=== PATIENT | female | born 1965 | race Caucasian/White ===

== ENCOUNTER 2017-03-14 17:26 | Inpatient (IN) | payer OTHER ==
[~2017-03-14] VITALS: Ht 154.9 cm; Wt 65.8 kg
--- NOTE | ~2017-03-14 | CO ---
Unit #: [id number] #: [id number] Patient: CARMEN RODRIGUEZ [id number] [address] [place], [place] [address] [id number] I MR#: [id number] NAME: CARMEN RODRIGUEZ ROOM: 231 Age: 52 Sex: F Admission Date: 03/14/2017 : 1965 Attending Physician: Rocío Coffey M.D. Primary Care Physician: Lse Alex M.D. Consultation Date: 03/16/2017 CONSULTATION REPORT REASON FOR CONSULTATION Bilateral hydronephrosis. HISTORY OF PRESENT ILLNESS The patient is a 52-year-old female with a history of cervical cancer, status post chemotherapy and radiation, and nephrolithiasis, who presented with approximately a four to five day history of nausea and vomiting as well as dysuria. She denies flank pain, she denies fevers. CT of the abdomen and pelvis revealed bilateral hydronephrosis, right greater than left, with a somewhat distended bladder. Her medical history is significant for nephrolithiasis. She underwent ureteroscopy and she was found to have a large stone burden in 2014. The patient was noncompliant with followup after this. She re-presented in early 2015. She underwent cystoscopy, right stent placement and right retrograde pyelogram and she was found to have a structure at the ureteral inlet. She was recommended to undergo right ureteral reimplant. We had multiple issues with compliance with followup including extensive number of unreturned phone calls from the patient. She also saw my partner, Dr. Brennen Herrera, who made a similar recommendation. I do not have any records of this being done but the patient states that she did have the surgery ultimately done but she does not know where the surgery was performed or who did the surgery. I do not have these records available to me. PAST MEDICAL HISTORY Includes: 1. Cervical cancer. 2. Hypothyroidism. PAST SURGICAL HISTORY 1. Cystoscopy, right ureteroscopy. 2. Cystoscopy, right retrograde and right stent placement. 3. Cholecystectomy. 4. ERCP with sphincterotomy and biliary stent. SOCIAL HISTORY The patient lives with her . Negative for smoking, tobacco or alcohol. FAMILY HISTORY Unremarkable. ALLERGIES Unremarkable. Unit #: [id number] #: [id number] Patient: CARMEN RODRIGUEZ MEDICATIONS Medications at home include levothyroxine. REVIEW OF SYSTEMS Twelve point review of systems was performed. It was positive for nausea. Negative for fever, negative for chills, negative for flank pain. Positive for nasal congestion. PHYSICAL EXAMINATION VITAL SIGNS: Temperature 98.3, blood pressure 100/56, pulse 88, respirations 20. HEENT: Normocephalic, atraumatic. Extraocular movements are intact. NECK: Supple. There is no lymphadenopathy. CARDIAC: The patient had regular rate and rhythm. Her radial pulses are 2+ bilaterally. RESPIRATIONS: She has normal symmetric chest rise bilaterally. Her chest is normal to palpation. ABDOMEN: Soft, nontender, nondistended. There is no rebound, no guarding, no CVA tenderness. She has a well-healed lower midline incision. EXTREMITIES: She has no clubbing, cyanosis, or edema. There is a negative Homans sign. SCDs are in place. EXAM: She has a Golden catheter in place. It is draining cloudy urine. DIAGNOSTIC STUDIES LABORATORY: Significant for a creatinine of 0.9, white blood cell count of 8000. Urinalysis is consistent with pyuria. Urine culture is growing Gram-negative rods. IMAGING: CT scan of the abdomen and pelvis was personally reviewed. She has bilateral hydronephrosis, right greater than left, with thinning of her right kidney which was present a year ago but appears to be slightly worse. ASSESSMENT AND PLAN Bilateral hydronephrosis, right greater than left: It appears that the patient has had some sort of a right reimplant but I do not have the records available to me. She may have hydronephrosis from reflux as well. I agree with the plan for Golden catheter, decompression and IV antibiotics. We will check an IVP today to evaluate for obstruction. She may ultimately need stents, but if she has had her right sided reimplanted, it may be difficult to place a stent in and, ultimately, may need nephrostomy tube. We appreciate the opportunity to participate in her care. Dictated by.Ngozi Villarreal M.D. STEVIE/steve TD: 03/16/2017 08:00 JOB #: [id number] Unit #: [id number] #: [id number] Patient: CARMEN RODRIGUZE CONSULTATION REPORT Page 1 of 1 X Davon Villarreal MD CONSULTATION REPORT
--- NOTE | ~2017-03-14 | CR161 ---
[facility] A Service of [facility] & [facility] RADIOLOGY TEXT RESULTS PATIENT: CARMEN RODRIGUEZ LOCATION: C2A 231-01 : [birth year] UNIT #: [id number] AGE: [address]: Rocío Coffey MD SEX: F ORDER DR: [id number] [facility] [address] [facility]. [place], [place] [address] [id number] I MR#: [id number] Acc #: [id number] NAME: CARMEN RODRIGUEZ. : 1965 SEX: F STUDY DATE/TIME: 03/16/2017 8:15 UNIT: C2 ROOM: 231 STUDY DESCRIPTION: CR IVP W Nephrotomogram Attending Physician: Rocío Coffey M.D. Ordering Physician: Davon Villarreal M.D. Primary Care Physician: Les Alex M.D. MEDICAL IMAGING REPORT This report is preliminary unless electronic signature is present EXAM IVP 03/16/2017 INDICATION Urinary tract infections. Hydronephrosis bilaterally seen on prior CT, right greater than left. Prior history of cervical cancer. FINDINGS Opal Miner image shows 2 biliary stents in the right upper quadrant. Numerous surgical clips are present in the right side of the abdomen extending into the pelvis. Cholecystectomy clips are present. Stool is noted in the colon which degrades image quality. The patient was administered 100 mL of Isovue-300 contrast and multiple images were obtained including nephrotomograms. No fluoro was employed. The left kidney has a normal appearance. No definite left hydronephrosis is seen. The left ureter appears normal in caliber to the extent that it is visible. The technologist inadvertently did not clamp the patient's Golden and therefore distended bladder images are not available. On the right side, there is at least a moderate degree of hydronephrosis noted with blunting and distension of the calyces. The renal pelvis does eventually fill with contrast. However, the right ureter never fills to any significant degree and is therefore not evaluated. This could indicate a right side UPJ stenosis. Function of the right kidney does appear somewhat delayed relative to the left. IMPRESSION 1. The left kidney as well as the left renal collecting system and left ureter appear normal. 2. At least a moderate degree of hydronephrosis in the right kidney with slightly delayed function relative to the left kidney. The right ureter never fills with contrast and is therefore not evaluated. This may be secondary to a right UPJ stenosis. 3. The patient's Golden catheter was inadvertently not clamped during the [facility] A Service of [facility] RADIOLOGY TEXT RESULTS PATIENT: CARMEN RODRIGUEZ LOCATION: [facility] 231-01 : 67 UNIT #: [id number] AGE: [address]: Rocío Coffey MD SEX: F ORDER DR: procedure and therefore, distended urinary bladder images could not be obtained. Dictated by... Elkin Ray Jr., M.D. THIS IS AN ELECTRONICALLY VERIFIED REPORT Elkin Ray Jr., M.D. at 03/16/2017 5:20 PM STEPH/cathy TD: 03/16/2017 14:19 JOB #: [id number] MEDICAL IMAGING REPORT Page 1 of 1 COPY
--- NOTE | ~2017-03-14 | CO ---
Unit #: [id number] #: [id number] Patient: CARMEN RODRIGUEZ [id number] [address] [address] [id number] I MR#: [id number] NAME: CARMEN RODRIGUEZ. ROOM: 231 Age: 52 Sex: F Admission Date: 03/14/2017 : 1965 Attending Physician: Rocío Coffey M.D. Primary Care Physician: Les Alex M.D. Consultation Date: 03/17/2017 CONSULTATION REPORT REASON FOR CONSULTATION Abnormal thyroid function test. HISTORY OF PRESENT ILLNESS A 52-year-old female, who is admitted with nausea, vomiting, abdominal pain, dysuria, and hematuria. She was admitted and found to have the hydronephrosis and urinary tract infection. She has a history of hypothyroidism, for which she was found to have the abnormal TSH level. I have been asked to see the patient for further management. MEDICAL HISTORY 1. Cervical cancer, status post chemo and radiation. 2. History of hydronephrosis with stent placement in the past. 3. Hypothyroidism. PAST SURGICAL HISTORY Cholecystectomy, history of right ureteral stent placement, ERCP and biliary stent in the past. SOCIAL HISTORY Lives with her . No alcohol or tobacco. FAMILY HISTORY Noncontributory. ALLERGIES None. HOME MEDICATIONS List is reviewed. She is on levothyroxine 200 mcg p.o. daily. REVIEW OF SYSTEMS A 12-point review of systems completed and negative except as noted in HPI. The patient has been feeling very weak, tired, and lethargic. PHYSICAL EXAMINATION GENERAL: She looks comfortable, no acute respiratory distress. VITAL SIGNS: Temperature 97.8, pulse 80, respirations 16, and blood pressure 116/57. HEENT: EOMI. Pupils equally reactive to light. NECK: Supple. No thyromegaly noted. CHEST: Good air entry. CVS: Regular rhythm. No murmurs. ABDOMEN: Benign. Unit #: [id number] #: [id number] Patient: CARMEN RODRIGUEZ DIAGNOSTIC STUDIES LABORATORY RESULTS: Reviewed. TSH is 0.05. Free T4 is 1.19, and free T3 is 2.2. ASSESSMENT Abnormal thyroid function test with a TSH of 0.05. Normal free T4. The patient has a history of hypothyroidism, currently taking levothyroxine 200 mcg daily. PLAN I am going to decrease the levothyroxine to 150 mcg daily. Repeat TSH level in 4 to 6 weeks for further medication adjustments. Thanks again for consultation. Dictated by... Makeda Nguyen/claudia TD: 03/18/2017 02:28 JOB #: [id number] CONSULTATION REPORT Page 1 of 1 X Vilma Ba MD X CONSULTATION REPORT
--- NOTE | ~2017-03-14 | HP ---
Unit #: [id number] #: [id number] Patient: CARMEN RODRIGUEZ [id number] [address] [address] [id number] I MR#: [id number] NAME: CARMEN RODRIGUEZ. ROOM: 231 Age: 52 Sex: F Admission Date: 03/14/2017 : 1965 Attending Physician: Rocío Coffey M.D. Primary Care Physician: Les Alex M.D. HISTORY AND PHYSICAL CHIEF COMPLAINT Nausea, vomiting and abdominal pain. HISTORY OF PRESENTING ILLNESS A 52-year-old female who came because of nausea, vomiting and abdominal pain which has been going on for the last few days which was gradually getting worse. She had dysuria. She had dark brown colored urine and she was having vomiting, which was intractable. The patient was not able to eat anything. She does not complain of fever, chills or regurg. She could have had low-grade fever. She does complain of back pain. The patient was admitted for UTI and hydronephrosis. PAST MEDICAL HISTORY 1. History of hydronephrosis in the past with stent placement. 2. History of hypothyroidism. 3. History of cervical cancer treated with chemotherapy and radiation therapy. PAST SURGICAL HISTORY 1. History of cholecystectomy. 2. History of cystoscopy and right stent placement. 3. History of ERCP, sphincterotomy and biliary stent placement in 2016. SOCIAL HISTORY The patient lives with her . No history of smoking, alcohol or drug abuse. FAMILY HISTORY Unremarkable. ALLERGIES No known drug allergies. HOME MEDICATION Levothyroxine 200 mcg p.o. daily. REVIEW OF SYSTEMS A 12-point review of systems was essentially negative except as above. The patient does have some nasal congestion and uses nasal spray. PHYSICAL EXAMINATION GENERAL APPEARANCE: The patient is lying comfortably in bed, was evaluated in room 231. VITAL SIGNS: T-max 99.9. Blood pressure 102/56. Respiratory rate 16. Unit #: [id number] #: [id number] Patient: CARMEN RODRIGUEZ Pulse 104. Temperature 98.7 at this time. Oxygen saturation is 96%. HEENT: Head is normocephalic. Eye movements are normal. Normal conjunctivae. NECK: Supple. CHEST: Fair air entry. No additional sounds. CARDIOVASCULAR: S1, S2 positive. Regular rhythm. Tachycardia. ABDOMEN: Soft. Mild tenderness is present in bilateral CVA area. Bowel sounds are positive. EXTREMITIES: Negative edema. CENTRAL NERVOUS SYSTEM: The patient is awake, alert, oriented x3. No focal neurological deficit. DIAGNOSTIC STUDIES LABORATORY: WBC 10.2, hemoglobin 10.2, hematocrit 30.0, platelet count 281. Urinalysis shows 4+ bacteria. Sodium 129, potassium 3.7, chloride 98, BUN 25, creatinine 1.1. Amylase, lipase in normal range. TSH 0.04. IMAGING: CT scan of the abdomen and pelvis was done during hospitalization which shows distension of the urinary bladder, increasing severe right hydronephrosis with increasing right hydroureter. Also, new moderate left hydronephrosis and left hydroureter. Stable appearance of the biliary stents both terminating in the duodenum. Moderate sized posterior disc protrusion at L4-5. ASSESSMENT The patient is being admitted to med/surg unit with: 1. Dysuria/UTI/pyelonephritis. 2. Bilateral hydronephrosis. 3. Abdominal pain secondary to first. 4. Nausea, vomiting, intractable. 5. Anemia. 6. Acute kidney injury, most likely prerenal. 7. Hypothyroidism. 8. History of cervical cancer status post chemotherapy and radiation therapy. PLAN Admit to med/surg unit. IV fluids are being started. IV antibiotics are being started. IV Zofran 4 mg q.6 p.r.n. and IV Dilaudid 0.5 mg q.6 p.r.n. for pain management. Blood cultures are being done. Urinalysis and culture are being done. SCDs will be placed for DVT prophylaxis. Dr. Dhillon has been consulted. Because Because of patient's low TSH, levothyroxine will be held. We will repeat TSH, free T4 and free T3 and we will restart levothyroxine once lab results are back. Labs will be repeated tomorrow morning. Plan of care has been discussed with patient and patient's , who is in the room. Please refer to progress note for further orders. Dictated by Makeda Daniel TD: 03/15/2017 13:44 JOB #: [id number] Unit #: [id number] #: [id number] Patient: CARMEN RODRIGUEZ HISTORY AND PHYSICAL Page 1 of 1 X Rocío Coffey MD X HISTORY AND PHYSICAL
--- NOTE | ~2017-03-14 | CT4 ---
[facility] A Service of [facility] & [facility] RADIOLOGY TEXT RESULTS PATIENT: CARMEN RODRIGUEZ LOCATION: [facility] 231-01 : 66 UNIT #: [id number] AGE: [address]: Rocío Coffey MD SEX: F ORDER DR: [id number] [place] [id number] I MR#: [id number] Acc #: [id number] NAME: CARMEN RODRIGUEZ. : 1965 SEX: F STUDY DATE/TIME: 03/14/2017 19:19 UNIT: SEDOF ROOM: [id number] STUDY DESCRIPTION: CT Abd and Pelv Wo Cont Attending Physician: Rocío Coffey M.D. Ordering Physician: Shakira Harrison Primary Care Physician: Les Alex M.D. MEDICAL IMAGING REPORT This report is preliminary unless electronic signature is present. EXAM CT abdomen and pelvis without IV contrast COMPARISON October 02, 2016. INDICATIONS 52-year-old female with low back pain and weakness since yesterday. One episode of emesis last night. History of renal calculi. COMPARISON October 02, 2016 March 04, 2016 and April 17, 2015. FINDINGS Axial CT imaging of the abdomen and pelvis was performed without IV contrast. Lack of IV contrast limits evaluation of adenopathy, vasculature, viscera. Coronal and sagittal reformats were constructed. This CT exam was performed with one or more of the following radiation dose reduction techniques: automatic control, adjustment of mA and/or kV according to patient size, and iterative reconstruction. There is a superior midline ventral hernia which contains the distal stomach. No evidence of associated inflammatory change. There is stable appearance and position of 2 stents within the common bile duct, both terminating in the transverse duodenum. There is stable intrahepatic pneumobilia likely due to prior ERCP and sphincterotomy. No evidence of acute pancreatitis on this noncontrast exam. Spleen and adrenal glands are unremarkable. There is abnormal distension and wall thickening of the urinary bladder not changed from October 02, 2016. There appears to be worsening of severe hydronephrosis of the right kidney with suggestion of cortical thinning. There is also new diffuse right hydroureter of uncertain etiology. There is also new diffuse left hydroureter and there is new moderate to severe left hydronephrosis of uncertain etiology. [facility] A Service of [facility] RADIOLOGY TEXT RESULTS PATIENT: CARMEN RODRIGUEZ LOCATION: [facility] 231-01 : 67 UNIT #: [id number] AGE: [address]: Rocío Coffey MD SEX: F ORDER DR: Patient is post hysterectomy. No definite adnexal masses are seen on this noncontrast exam. Inspissated stool is noted within the colon. No evidence of mechanical bowel obstruction. Appendix is not definitely seen and may be surgically absent. Surgical clips noted in the pelvis, possibly from prior lymph node biopsy in this patient with history of cervical cancer. No free fluid or pneumoperitoneum. Abdominal aorta is normal in caliber with a scattered mural calcifications and there are calcifications extending to the iliac arteries bilaterally. No adenopathy. No acute findings in the lower chest. Mild multilevel degenerative facet disease of the lower lumbar spine. Moderate sized posterior disc protrusion L4-L5. No acute fractures or suspicious osseous lesions. IMPRESSION 1. There is stable marked severe distension of the urinary bladder which has an abnormal nearly perfectly round appearance and there is stable, wall thickening of the urinary bladder. However there is increasing severe right hydronephrosis with increasing right hydroureter. There appears to be new cortical volume loss of the right kidney, concerning for diminishing renal function due to obstruction. This obstruction is uncertain etiology and urologic consultation is recommended. There is also new moderate left hydronephrosis and left hydroureter. No obstructing lesion is seen. There may be benign distal ureteral strictures if there has been prior radiation for cervical cancer. CT urography could be performed for further evaluation. Clinical correlation to exclude signs of cystitis and/or ascending pyelitis/pyelonephritis recommended. 2. New herniation of the distal stomach into a ventral hernia in the upper midline abdominal wall. 3. Stable appearance of biliary stents both terminating in the duodenum. Stable intrahepatic and extrahepatic pneumobilia likely due to the indwelling stents and/or prior sphincter of Oddi manipulation. 4. Moderate sized posterior disc protrusion at L4-L5. 5. Prior hysterectomy for cervical cancer. Appendix is not seen and may be surgically absent. No secondary findings of an acute appendicitis. 6. Patient is post cholecystectomy. Dictated by... Jorge Mckeon M.D. THIS IS AN ELECTRONICALLY VERIFIED REPORT Jorge Mckeon M.D. at 03/21/2017 6:50 PM BLM/rnr TD: 03/15/2017 00:50 [facility] A Service of [facility] RADIOLOGY TEXT RESULTS PATIENT: CARMEN RODRIGUEZ LOCATION: [place] [address] : 67 UNIT #: [id number] AGE: [address]: Rocío Coffey MD SEX: F ORDER DR: JOB #: [id number] MEDICAL IMAGING REPORT Page 1 of 1
--- NOTE | ~2017-03-14 | DS ---
Unit #: [id number] #: [id number] Patient: JANIS RODRIGUEZ [id number] [address] [address] [id number] I MR#: [id number] NAME: JANIS RODRIGUEZ. ROOM: 231 Age: 52 Sex: F Admission Date: 03/14/2017 : 1965 Discharge Date: 03/18/2017 Attending Physician: Rocío Coffey M.D. Primary Care Physician: Les Alex M.D. DISCHARGE SUMMARY FINAL DIAGNOSES 1. Urinary tract infection with urine culture growing Escherichia coli, which is sensitive to Rocephin, Bactrim, ampicillin, and nitrofurantoin. Please note, the patient has been taking IV Rocephin during hospitalization. 2. Bilateral hydronephrosis, moderate degree of hydronephrosis in the right kidney with slightly delayed function relative to the left kidney. The patient may have stricture on the right side. 3. Hypokalemia, which is resolved. 4. Acute kidney injury, improved. 5. Hypothyroidism with abnormal TSH level of 0.05. 6. Full code. 7. History of cervical cancer treated with chemotherapy and radiation therapy. DISCHARGE MEDICATIONS 1. Ceftin 500 mg b.i.d. 2. Zofran 4 mg q.8 p.r.n. CONSULTATION DURING HOSPITALIZATION Dr. Villarreal and Dr. Coello from [facility]. HOSPITAL COURSE Ms. Janis Rodriguez is a 52-year-old female, who was admitted to the hospital with nausea, vomiting, and abdominal pain. The patient was admitted to Med[facility]Surg Unit at [facility], was diagnosed with pyelonephritis/UTI and bilateral hydronephrosis. The patient's abdominal pain was most likely secondary to above, and nausea and vomiting secondary to above. Dr. Villarreal from [facility] was consulted. The patient had bilateral hydronephrosis, right greater than left. The patient had some sort of right reimplant. The patient had a Golden catheter done, decompression was done, and IV antibiotics were started. IVP was done on 03/16/2017, which showed the left kidney as well as the left renal collecting system and the left ureter appeared normal, at least a moderate degree of hydronephrosis in the right kidney with slightly delayed function relative to the left kidney. As I stated, never fills with contrast and is therefore not evaluated. This may be secondary to right UPJ stenosis. Dr. Coello discussed with the patient's boyfriend, who has spoken with [facility] urologist and was advised to have no intervention till she was seen as an outpatient. The patient and patient's boyfriend did not want any procedure done in this hospital. The patient will be discharged home on p.o. antibiotics as per Urology recommendation. The patient will need further workup and investigation and treatment. The Unit #: [id number] #: [id number] Patient: JANIS RODRIGUEZ patient does verbalize understanding on it. The patient was also seen by employment counselor, Dr. Ba because of TSH at 0.05. The patient's dose of levothyroxine has been decreased to 150 mcg daily. The patient will need repeat TSH to be done in 4 to 6 weeks. DISCHARGE PHYSICAL EXAMINATION VITAL SIGNS: Blood pressure 110/51, respiratory rate 19, pulse is 87, temperature 98.5, and oxygen saturation is 96%. CHEST: Fair air entry. CVS: Regular rhythm. ABDOMEN: Soft. DISCHARGE INSTRUCTIONS 1. The patient is being discharged home in stable condition. 2. Follow up with primary care provider in 1 week. 3. CBC and BMP to be done in 1 week. 4. Follow up [facility] urology as scheduled. 5. Medication as per medication reconciliation. 6. The patient needs to follow up with Dr. Timbo Major in 1 to 2 weeks for her bile duct stent, which was placed some time ago. Dictated by... Makeda Daniel/claudia TD: 03/21/2017 03:45 JOB #: [id number] DISCHARGE SUMMARY Page 1 of 1 X Rocío Coffey MD DISCHARGE SUMMARY
[~2017-03-14 17:26] MED LIST: ADVIL200 M2 PO; AFRIN3 ML; ALBUTEROL MDI; ASCORBIC ACID250 M1 PO; AZO URINARY P97.5 MG PO; BACTRIM DS TABL1 TA1 PO; BACTRIM DS TABL1 TAB PO; BENADRYL25 M1 PO; BETA CAROT10000 UNIT PO; BETA CAROTENE1 GM PO; CEPHALEXIN500 M1 PO; CIPRO PO; CLARITIN PO; DIFLUCAN PO; ESTROVEN 155 M155 MG PO; ESTROVEN ENER400 MCG PO; FISH OIL300 MG PO; FLAGYL PO; FLEXERIL10 MG PO; FLOMAX0.4 M1 PO; HAIR SKIN NAIL1 EACH PO; HYDROCODON-ACE1 EAC5 PO; HYDROCODON-ACE1 EAC9 PO; LEVAQUIN PO; LEVOTHYROXINE100 MC1 PO; LEVOTHYROXINE100 MCG PO; NO MEDICATIONS; NORFLEX100 M1 PO; OMEGA-3100 MG PO; OMEPRAZOLE40 M1 PO; OXYCODON-ACETA1 EAC1 PO; PEN-VEE K PO; PERCOCET 5-3251 TAB PO; PHENERGAN25 M1 PO; PHENERGAN25 MG PO; PREDNISONE PO; PYRIDIUM PO; SYNTHROID0.1 MG DOB; SYNTHROID0.1 MG PO; TUSSIONEX PENN473 ML PO; VIBRAMYCIN100 M1 PO; VITAMIN K100 MCG PO; VOLTAREN50 MG PO; VOLTAREN75 MG PO; WOMEN'S DAILY1 EACH PO; ZITHROMAX PO; ZOFRAN ODT4 MG PO; ZOFRAN8 MG PO; ZOVIRAX800 MG PO
[2017-03-14 18:17] LABS: URINE SOURCE CLEAN CATCH
[2017-03-14 18:19] LABS: BASOPHIL% 0.5 % (0-2.5); EOSINOPHIL# 0.1 X10e3 (0-0.7); EOSINOPHIL% 0.9 % (0.0-7.0); HEMOGLOBIN 10.2 gm/dL (12.0-16.0); LYMPHOCYTE# 1.1 X10e3 (1.0-3.5); MEAN CELL VOLUME 88.2 FL (83-96); MEAN PLATELET VOLUME 6.8 FL (6.5-11.5); MONOCYTE# 1.2 X10e3 (0-1.0); MONOCYTE% 11.9 % (3.0-12.0); NEUTROPHIL# 7.6 X10e3 (1.5-7.1); NEUTROPHIL% 75.7 % (40-75); PLATELET COUNT 281 X10e3 (140-420); RED CELL DISTRIBUTION WIDTH 13.2 % (11.0-15.5)
[2017-03-14 18:20] LABS: DIFF IND NO
[2017-03-14 18:22] LABS: URINE APPEARANCE TURBID; URINE BILIRUBIN NEG (NEG); URINE BLOOD 3+ (NEG); URINE COLOR AMBER; URINE GLUCOSE NEG (NORM); URINE KETONE NEG (NEG); URINE LEUKOCYTE ESTERASE 3+ (NEG); URINE NITRATE NEG (NEG); URINE PROTEIN 2+ (NEG); URINE SPECIFIC GRAVITY 1.015 (1.003-1.035); URINE UROBILINOGEN 0.2 MG/DL (NORM)
[2017-03-14 18:24] LABS: MICRO INDICATED? YES; URINE RBC INNUM /[HPF] (0-2); URINE WBC INNUM /[HPF] (0-5)
[2017-03-14 18:25] LABS: CULTURE INDICATED? YES; URINE BACTERIA 4+ (NEG)
[2017-03-14 18:41] LABS: ALBUMIN SERUM 3.5 g/dL (3.5-5.0); BILIRUBIN, DIRECT 0.1 mg/dL (0.0-0.2); BILIRUBIN,INDIRECT 0.4 mg/dL (0.0-0.9); BILIRUBIN,TOTAL 0.5 mg/dL (0.2-2.0); BUN/CREATININE RATIO 22.72; CALCIUM SERUM 8.3 mg/dL (8.4-10.2); CREATININE SERUM 1.1 mg/dL (0.6-1.4); GLOM FILT RATE Estimated 58.1 mL/min (>60); POTASSIUM 3.7 mmol/L (3.5-5.1); PROTEIN TOTAL SERUM 7.4 g/dL (6.0-8.3)
[2017-03-15 05:55] LABS: BASOPHIL% 0.4 % (0-2.5); EOSINOPHIL# 0.1 X10e3 (0-0.7); EOSINOPHIL% 1.5 % (0.0-7.0); HEMATOCRIT 29.2 % (35.0-45.0); HEMOGLOBIN 9.5 gm/dL (12.0-16.0); LYMPHOCYTE# 1.2 X10e3 (1.0-3.5); LYMPHOCYTE% 15.1 % (17.0-45.0); MEAN CELL VOLUME 90.3 FL (83-96); MEAN CORPUSCULAR HEMOGLOBIN 29.4 PG (28-34); MEAN CORPUSCULAR HGB CONC 32.5 g/dL (30-36); MEAN PLATELET VOLUME 7.4 FL (6.5-11.5); MONOCYTE# 1.1 X10e3 (0-1.0); MONOCYTE% 13.4 % (3.0-12.0); NEUTROPHIL# 5.6 X10e3 (1.5-7.1); NEUTROPHIL% 69.6 % (40-75); PLATELET COUNT 235 X10e3 (140-420); RED BLOOD COUNT 3.23 X10e (3.90-5.30); RED CELL DISTRIBUTION WIDTH 13.1 % (11.0-15.5); WHITE BLOOD COUNT 8.1 X10e3 (4.0-10.5)
[2017-03-15 06:08] LABS: DIFF IND NO
[2017-03-15 06:31] LABS: CALCIUM SERUM 8.3 mg/dL (8.4-10.2); CREATININE SERUM 0.9 mg/dL (0.6-1.4); GLOM FILT RATE Estimated 74.1 mL/min (>60); POTASSIUM 3.7 mmol/L (3.5-5.1)
[2017-03-15 13:56] LABS: THYROID STIMULATING HORMONE 0.05 uIU/ml (0.34-5.60)
[2017-03-15 14:00] LABS: FREE T3 2.2 pg/mL (2.5-3.9)
[2017-03-15 14:02] LABS: FREE THYROXIN (T4) 1.09 ng/dL (0.58-1.64)
[2017-03-16 07:21] LABS: HEMATOCRIT 26.7 % (35.0-45.0); HEMOGLOBIN 8.7 gm/dL (12.0-16.0); MEAN CELL VOLUME 90.2 FL (83-96); MEAN CORPUSCULAR HEMOGLOBIN 29.3 PG (28-34); MEAN CORPUSCULAR HGB CONC 32.5 g/dL (30-36); MEAN PLATELET VOLUME 7.8 FL (6.5-11.5); RED BLOOD COUNT 2.96 X10e (3.90-5.30); RED CELL DISTRIBUTION WIDTH 12.8 % (11.0-15.5); WHITE BLOOD COUNT 6.9 X10e3 (4.0-10.5)
[2017-03-16 08:35] LABS: POC - CREATININE 0.93 mg/dL (0.44-1.03); POC - GFR >60.0 mL/min (>60)
[2017-03-17 06:13] LABS: HEMATOCRIT 25.8 % (35.0-45.0); HEMOGLOBIN 8.5 gm/dL (12.0-16.0); MEAN CELL VOLUME 88.6 FL (83-96); MEAN CORPUSCULAR HEMOGLOBIN 29.1 PG (28-34); MEAN CORPUSCULAR HGB CONC 32.8 g/dL (30-36); MEAN PLATELET VOLUME 7.4 FL (6.5-11.5); RED BLOOD COUNT 2.91 X10e (3.90-5.30); RED CELL DISTRIBUTION WIDTH 12.5 % (11.0-15.5)
[2017-03-17 06:55] LABS: BUN/CREATININE RATIO 11.25; CALCIUM SERUM 7.9 mg/dL (8.4-10.2); CREATININE SERUM 0.8 mg/dL (0.6-1.4); GLOM FILT RATE Estimated 85.4 mL/min (>60); POTASSIUM 3.3 mmol/L (3.5-5.1)
[2017-03-18 06:01] LABS: CALCIUM SERUM 7.6 mg/dL (8.4-10.2); CREATININE SERUM 0.5 mg/dL (0.6-1.4); GLOM FILT RATE Estimated 112.1 mL/min (>60); POTASSIUM 3.3 mmol/L (3.5-5.1)
[2017-03-18] MEDS ORDERED: CEFTIN PO (11:33)
[2017-03-18] MEDS ORDERED: ZOFRAN PO (11:34)
== END 2017-03-18 12:33 | disposition home or self-care (01) | DRG 690 ==
LOC: SED 17:26 → SEDOF 22:32 → C2A 22:32 → SEDOF 22:33 → SED 22:33 → SEDOF 03-15 00:03 → C2A 03-15 00:03
PROVIDERS: Hospitalist; Physician Assistant; Physician Assistant Medical
DX: N39.0 Urinary tract infection, site not specified (principal); N17.9 Acute kidney failure, unspecified; B96.20 Unspecified Escherichia coli [E. coli] as the cause of diseases classified elsewhere; N13.30 Unspecified hydronephrosis; E87.6 Hypokalemia; E03.9 Hypothyroidism, unspecified; Z85.41 Personal history of malignant neoplasm of cervix uteri; Z90.49 Acquired absence of other specified parts of digestive tract; D64.9 Anemia, unspecified
CPT/HCPCS: 36415; 74176; 74415; 80048; 80076; 81003; 82150; 82565; 83690; 84439; 84443; 84481; 85025; 85027; 87040; 87086; 87088; 87186; 96361; 96374; 96375; 99284; C9113; J0696; J1170; J2270; J2405; Q9967

== ENCOUNTER 2017-04-15 19:10 | Emergency (ER) | payer OTHER ==
[~2017-04-15] VITALS: Ht 154.9 cm; Wt 54.4 kg
[~2017-04-15 19:10] MED LIST changes: +CEFTIN PO; +ZOFRAN PO
== END 2017-04-15 20:25 | disposition home or self-care (01) ==
LOC: SED 19:10
DX: L23.7 Allergic contact dermatitis due to plants, except food (principal); Z88.5 Allergy status to narcotic agent
CPT/HCPCS: 96372; 99283; J1100